=== PATIENT | male | born 1960 | race Caucasian/White ===

== ENCOUNTER 2016-08-09 15:45 | Emergency (ER) | payer OTHER ==
[2016-08-09 17:16] LABS: HEMOGLOBIN 12.1 gm/dl (14.0-17.5); RED BLOOD COUNT 4.12 M/UL (4.20-5.50); WHITE BLOOD COUNT 7.8 K/UL (4.5-11.0)
== END 2016-08-09 20:07 | disposition home or self-care (01) ==
LOC: ER1 15:45
PROVIDERS: Physician Assistant
DX: K43.9 Ventral hernia without obstruction or gangrene (principal); I10 Essential (primary) hypertension; J44.9 Chronic obstructive pulmonary disease, unspecified; F17.200 Nicotine dependence, unspecified, uncomplicated; Z86.711 Personal history of pulmonary embolism; Z79.01 Long term (current) use of anticoagulants; Z79.899 Other long term (current) drug therapy
CPT/HCPCS: 36415; 80053; 81001; 82150; 83690; 85025; 85610; 85730; 96374; 96375; 99284; J2270; J2405

== ENCOUNTER → 2020-03-27 | Outpatient (CLI) | payer MEDICARE ==
[2020-03-28 09:14] LABS: ESTRADIOL 14.7 pg/mL (7.6-42.6); FSH, SERUM 13.6 mIU/mL (1.5-12.4); PROLACTIN 14.7 ng/mL (4.0-15.2)
[2020-03-28 11:14] LABS: SEX HORM BINDING GLOB, SERUM 35.4 nmol/L (19.3-76.4)
[2020-03-29 21:07] LABS: TESTOSTERONE, SERUM 144 ng/dL (264-916)
== END ==
LOC: US 03-12 13:30
PROVIDERS: Family Medicine
DX: N62 Hypertrophy of breast (principal)
CPT/HCPCS: 36415; 76641-RT; 80053; 82670; 83001; 83002; 84146; 84270; 84402; 84403; 84443; 84702

== ENCOUNTER → 2020-09-24 | Outpatient (CLI) | payer MEDICARE | LOC: KOH-I 09-18 13:00 | DX: N17.9 Acute kidney failure, unspecified (principal) | CPT/HCPCS: 76775 ==

== ENCOUNTER 2021-08-21 14:14 | Emergency (ER) | payer MEDICARE | END 2021-08-21 15:13 | disposition left against medical advice (07) | LOC: ER1 14:14 | DX: Z53.21 Procedure and treatment not carried out due to patient leaving prior to being seen by health care provider (principal) ==